=== PATIENT | male | born 2000 | race African-American/Black ===

== ENCOUNTER 2021-04-28 01:40 | Emergency (ER) | payer OTHER ==
[~2021-04-28] VITALS: Ht 177.8 cm; Wt 65.8 kg
[2021-04-28 01:43] VITALS: BP 147/76
[2021-04-28 01:47] VITALS: BP 147/76
--- NOTE | 2021-04-28 01:48 | NUR ---
PATIENT BIB [facility]. PATIENT EXAMINED BY DR. ESCALANTE. PATIENT MEDICALLY CLEARED AND RELEASED IN CUSTODY IN STABLE CONDITION. ORIGINAL PRE-BOOK FORM GIVEN TO OFFICER ARLETTE.
== END 2021-04-28 01:47 ==
LOC: MED 01:40
DX: Z02.89 Encounter for other administrative examinations (principal); V98.8XXA Other specified transport accidents, initial encounter; Y93.89 Activity, other specified; Y92.89 Other specified places as the place of occurrence of the external cause; Y99.8 Other external cause status
CPT/HCPCS: 99283